=== PATIENT | male | born 1975 | race Caucasian/White ===

== ENCOUNTER 2020-03-01 12:58 | Outpatient (REF) | payer MEDICAID, SELFPAY | END 2020-03-01 12:59 | disposition home or self-care (01) | LOC: HO.LAB 12:58 | PROVIDERS: PCP Internal Medicine; Visit Provider Internal Medicine | DX: Z20.828 Contact with and (suspected) exposure to other viral communicable diseases (principal) | CPT/HCPCS: U0003 ==

== ENCOUNTER 2020-03-07 13:33 | Outpatient (REF) | payer MEDICAID, SELFPAY | END 2020-03-07 13:34 | disposition home or self-care (01) | LOC: HO.LAB 13:33 | PROVIDERS: PCP Internal Medicine; Visit Provider Internal Medicine | DX: Z20.828 Contact with and (suspected) exposure to other viral communicable diseases (principal) | CPT/HCPCS: C9803; U0003 ==

== ENCOUNTER 2020-03-14 11:55 | Outpatient (REF) | payer MEDICAID, SELFPAY | END 2020-03-14 11:56 | disposition home or self-care (01) | LOC: HO.LAB 11:55 | PROVIDERS: Visit Provider Internal Medicine | DX: Z20.828 Contact with and (suspected) exposure to other viral communicable diseases (principal) | CPT/HCPCS: C9803; U0003 ==

== ENCOUNTER 2020-03-20 14:44 | Outpatient (REF) | payer MEDICAID, SELFPAY | END 2020-03-20 14:45 | disposition home or self-care (01) | LOC: HO.LAB 14:44 | PROVIDERS: Visit Provider Internal Medicine | DX: Z20.828 Contact with and (suspected) exposure to other viral communicable diseases (principal) | CPT/HCPCS: C9803; U0003 ==

== ENCOUNTER 2020-04-09 12:36 | Outpatient (REF) | payer MEDICAID, SELFPAY | END 2020-04-09 12:37 | disposition home or self-care (01) | LOC: HO.LAB 12:36 | PROVIDERS: PCP Internal Medicine; Visit Provider Internal Medicine | DX: Z20.828 Contact with and (suspected) exposure to other viral communicable diseases (principal) | CPT/HCPCS: C9803; U0003 ==

== ENCOUNTER 2021-04-07 10:09 | Emergency (ER) | payer MEDICAID, SELFPAY ==
[2021-04-07 11:03] VITALS: BP 152/98; PULSE 77; RESP 18; TEMP 36.5; O2SAT 98; BMI 26.6
[2021-04-07 11:10] VITALS: BP 152/98; PULSE 77; RESP 18; TEMP 36.5; O2SAT 98
[2021-04-07] MEDS: hydrOXYzine HCL 25 MG TABLET PO (12:32)
--- NOTE | 2021-04-07 12:44 | ED_ITS ---
HPI - Anxiety General Chief Complaint: Anxiety Stated Complaint: Anxiety Time Seen by Provider: 04/07/21 12:03 Source: patient Mode of arrival: ambulatory History of Present Illness HPI narrative: 45-year-old male with past medical history of anxiety, depression, opiate abuse recently weaned off methadone 18 days ago presenting to the ED complaining of increased anxiety and insomnia since stopping methadone. Denies any drug use. Reports due to increased anxiety has been drinking EtOH. Admits to drinking almost daily until intoxicated. Last drink Wednesday. Denies history of withdrawal seizures. Denies SI/HI, CP/SOB, abdominal pain, nausea/vomiting MD complaint: anxiety Quality: constant Related Data Previous Rx's Medication Instructions Recorded hydroxyzine HCl 25 mg tablet 25 mg PO TID PRN #5 tab 04/07/21 Allergies Allergy/AdvReac Type Severity Reaction Status Date / Time No Known Allergies Allergy Verified 04/07/21 11:03 [No Known Allergies*] Review of Systems Review of Systems: Constitutional: No Fever, No Chills,No Fatigue, No Malaise ENT/Mouth: No Ear Pain, No Nasal Congestion, No sore throat, No Rhinorrhea Eyes: No Eye Pain, No Swelling, No Redness Cardiovascular: No Chest Pain, No SOB, No Palpitations Respiratory: No Cough, No Dyspnea Gastrointestinal: No Nausea, No Vomiting, No Diarrhea, No Constipation, No Abdominal pain Genitourinary: No Dysuria, No Flank Pain Musculoskeletal: No joint pain, No Myalgias Skin: No Skin Lesions, No rash Neuro: No Weakness, No Dizziness, No Headache Psych: + Anxiety/Panic, No Depression, No SI/HI/AH/VH, No Social Issues Yes all other systems are reviewed and are negative [facility] Past Medical History Attestation statement: The following information was validated with the patient. Medical History Anxiety Depression Opiate abuse, episodic Social History Social History Advance Directives: No Advance Directives Information Provided: No Physical Exam Vital Signs: Vital Signs: Last Vital Signs Temp 97.7 F 04/07/21 11:10 Pulse 77 04/07/21 11:10 Resp 18 04/07/21 11:10 BP 152/98 H 04/07/21 11:10 Pulse Ox 98 12/06/21 11:10 BMI result Body Mass Index 26.6 Const: General: cooperative, healthy appearing, no acute distress and anxious Orientation/consciousness: patient oriented x3 Limitations: no limitations HENMT: Head: Yes normal to inspection and Yes normocephalic Ears: hearing grossly normal bilaterally General nose exam: Normal external nose present Face and sinus: Yes normal facial exam Eyes: General: appearance normal, both eyes and all related structures EOM: EOMs intact bilaterally Neck: Neck: Yes normal visual inspection and Yes no meningeal signs Resp: Effort & Inspection: normal respiratory effort Auscultation: clear to auscultation bilaterally, no rales, no rhonchi and no wheezes Cardio: Rate: regular rate Heart sounds: S1 normal heart sound present and S2 normal heart sound present GI: Inspection: Yes normal to inspection Skin: Rashes: no rashes Wounds: no wounds Neuro: General: patient oriented x3 and no meningeal signs Gait exam (Neuro): Normal gait present Motor exam (neuro): no tremors and no fasciculations noted Extrem: General: Yes normal to inspection Psych: Appearance: grossly normal Thought process: Normal thought process present Thought content: suicidality and no homicidality Insight: Good insight present (Psych) MDM - Anxiety MDM Narrative Medical decision making narrative: 45-year-old male with past medical history of anxiety, depression, opiate abuse recently weaned off methadone 18 days ago presenting to the ED complaining of increased anxiety and insomnia since stopping methadone. On exam vital signs stable, NAD/nontoxic appearing, lungs CTA, appears anxious. Discussed with patient he needs to follow-up with his PCP for anxiolytic prescription however will give him Atarax in the ED and a couple days worth of medication until can see PCP Differential Diagnosis Differential diagnosis: Likely panic disorder and acute anxiety Medical Records Attestation: I reviewed the patient's medical records. Lab Data Attestation: I reviewed the patient's lab results. Discharge Plan Discharge Clinical Impression: Acute anxiety Patient Disposition: Home, Self-Care Instructions: Anxiety (ED) Additional Instructions: Hydroxyzine was sent to pharmacy for you for acute anxiety, take as needed You need to follow-up with her primary care doctor for further prescription Please do not drink alcohol or take drugs can kill you, if you have thoughts of hurting herself or hurting others please return to the emergency department Prescriptions: New hydroxyzine HCl 25 mg tablet 25 mg PO TID PRN (Reason: anxiety) Qty: 5 RF: 0 Referrals: Geoff Wilkins MD [Primary Care Provider] - 2 days Stand Alone Forms: Work/School Release
== END 2021-04-07 13:09 | disposition home or self-care (01) ==
PROVIDERS: Emergency Provider Emergency Medicine; PCP Internal Medicine
DX: F41.9 Anxiety disorder, unspecified (principal); F11.11 Opioid abuse, in remission
CPT/HCPCS: 99283

== ENCOUNTER 2021-10-31 23:03 | Emergency (ER) | payer MEDICAID, SELFPAY ==
--- NOTE | ~2021-10-31 | XR_ITS ---
EXAMINATION: XR FOOT, LEFT CLINICAL INFORMATION: Injury left foot. COMPARISON: None TECHNIQUE: AP, lateral, and oblique views of the left foot. 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 No acute abnormality of bone or joint. There is no fracture. No focal bone lesion or abnormal periosteal reaction. No soft tissue abnormality. XR/XR foot LT min 3V IMPRESSION: Normal left foot.
[2021-10-31 23:34] VITALS: BP 107/77; PULSE 104; RESP 16; TEMP 36.7; O2SAT 95; BMI 27.3
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
[2021-11-01] MEDS: Diphth,Pertus(ACell),Tet Adult 0.5 ML SYRINGE IM (00:42)
== END 2021-11-01 00:52 | disposition home or self-care (01) ==
PROVIDERS: Emergency Provider Internal Medicine; PCP Internal Medicine
DX: S91.332A Puncture wound without foreign body, left foot, initial encounter (principal); W22.8XXA Striking against or struck by other objects, initial encounter; Y93.89 Activity, other specified; Y92.012 Bathroom of single-family (private) house as the place of occurrence of the external cause; Y99.8 Other external cause status
CPT/HCPCS: 73630; 90471; 90715; 99282; 99284

== ENCOUNTER 2022-06-14 02:45 | Emergency (ER) | payer MEDICAID, SELFPAY ==
[2022-06-14 02:57] VITALS: BP 168/103; BP 190/117; PULSE 111; PULSE 115; RESP 18; TEMP 36.8; O2SAT 97; BMI 27.3
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
--- NOTE | 2022-06-14 03:17 | ECG_ITS ---
Test Reason : OVERDOSE Blood Pressure : / mmHG Vent. Rate : 100 BPM Atrial Rate : 100 BPM P-R Int : 136 ms QRS Dur : 080 ms QT Int : 336 ms P-R-T Axes : 066 034 025 degrees QTc Int : 433 ms Normal sinus rhythm Nonspecific T wave abnormality Abnormal ECG No previous ECGs available Referred By: Angelo Donovan Electronically Signed By:SHANTAL ADHIKARI MD
[2022-06-14 03:29] LABS: Basophils Absolute Auto 0.1 X10*3/uL (0.0-0.2); Basophils Percent Auto 0.5 % (0-2); Eosinophils Absolute Auto 0.2 X10*3/uL (0.0-0.4); Eosinophils Percent Auto 1.6 % (0-4); Hematocrit 44.2 % (42.0-52.0); Hemoglobin 15.5 g/dl (14.0-18.0); Imm Gran Abs Auto 0.04 X10*3/uL (0.00-0.03); Imm Gran Pct Auto 0.4 % (0.0-0.4); Lymphocytes Absolute Auto 1.9 X10*3/uL (1.2-4.9); Lymphocytes Percent Auto 20.2 % (20-40); MANUAL DIFF FLAG NO; Mean Corpuscular HGB Conc 35.1 g/dl (31.0-36.0); Mean Corpuscular Hemoglobin 30.3 pg (27.0-33.0); Mean Corpuscular Volume 86.5 fL (80.0-98.0); Mean Platelet Volume 8.2 fL (9.4-12.4); Monocytes Absolute Auto 0.8 X10*3/uL (0.1-1.2); Monocytes Percent Auto 8.7 % (2-11); Neutrophils Absolute Auto 6.3 x10*3/uL (2.0-8.3); Neutrophils Percent Auto 68.6 % (45-73); Platelet Count 311 X10*3/uL (160-400); Red Blood Count 5.11 X10*6/uL (4.60-5.80); Red Cell Distribution Width 15.4 % (11.0-16.0); White Blood Count 9.3 X10*3/uL (4.8-10.8)
--- OUTSIDE RECORDS SUMMARY | 2022-06-14 03:54 | XMS_ITS | Continuity of Care Document ---
:1975 Author Organization [facility] Address [address] [place] [address]- Care Team Providers Name Role Phone Geoff Wilkins MD [id number] Date[facility]s): 12/07/19 - 01/27/20 [facility] [address] [place] [address]- [facility] Attending Physician: Jennifer Adam MD Admitting Physician: Jennifer Adam MD Referring Physician: Geoff Wilkins MD Allergies, Adverse Reactions, Alerts Substance Reaction Severity Status NKA Active Immunizations Given and Recorded Vaccine Date Status Refusal Reason pneumococcal 23-valent vaccine 12/01/19 Given Medications CeleXA 40 mg oral tablet 40 mg, 1, tablet, By Mouth, Daily, # 30 tablet, Refills 0, Tot. Refills 0, Maintenance, 01/13/20 9:44:00 EDT, Route to Pharmacy Electronically, [facility]/pharmacy #[id number], 171.45, cm, 01/12/20 15:07:00 EDT, Height, 74.2, kg, 12/13/19 20:44:00 EDT, Dry Weight Start Date: 01/13/20 Status: Orderedgabapentin 800 mg oral tablet 1 tablet = 800 mg, By Mouth, 3 times a day, # 90 tablet, 0 Refills, Maintenance, 01/13/20 9:45:00 EDT, Tablet, [facility]/pharmacy #[id number], 171.45, cm, 01/12/20 15:07:00 EDT, Height, 74.2, kg, 12/13/19 20:44:00EDT, Dry Weight Start Date: 01/13/20 Status: Orderednicotine 14 mg/24 hr transdermal film, extended release 1 patch, Topically, Daily, # 30 patch, 0 Refills, Maintenance, 01/13/20 9:48:00 EDT, Patch, [facility]/pharmacy #[id number], 1 patch Topically Daily, 171.45, cm, 01/12/20 15:07:00 EDT, Height, 74.2, kg, 12/13/19 20:44:00 EDT, Dry Weight Start Date: 01/13/20 Status: OrderedTylenol 325 mg oral tablet 975 mg, 3, tablet, By Mouth, 2 times a day, Refills 0, Maintenance, 01/13/20 9:43:00 EDT Start Date: 01/13/20 Status: Ordered Problem List Condition Effective Dates Status Health Status Informant Back pain(Confirmed) Active Discitis of lumbar region(Confirmed) Active Opioid use disorder, severe, Active dependence(Confirmed) Social History Social History Type Response Smoking Status 10 or more cigarettes (1/2 p ack or more)/day in last 30 days entered on: 09/19/19 Sex
--- OUTSIDE RECORDS SUMMARY | 2022-06-14 03:54 | XMS_ITS | Continuity of Care Document ---
:1975 Author Organization [facility] Address [address] [place] [address]- Care Team Providers Name Role Phone Geoff Wilkins MD Primary Care Physician Encounter [facility] Date(s): 12/13/19 - 01/13/[address] [address] Discharge Disposition: A-D/C Home Attending Physician: Aria Arnold MD Admitting Physician: Dawood Grant MD Referring Physician: Dawood Grant MD Allergies, Adverse Reactions, Alerts Substance Reaction Severity Status NKA Active Immunizations Given and Recorded Vaccine Date Status Refusal Reason pneumococcal 23-valent vaccine 12/01/19 Given Medications CeleXA 40 mg oral tablet 40 mg, 1, tablet, By Mouth, Daily, # 30 tablet, Refills 0, Tot. Refills 0, Maintenance, 01/13/20 9:44:00 EDT, Route to Pharmacy Electronically, [facility]/pharmacy [facility][id number], 171.45, cm, 01/12/20 15:07:00 EDT, Height, 74.2, kg, 12/13/19 20:44:00 EDT, Dry Weight Start Date: 01/13/20 Status: Orderedgabapentin 800 mg oral tablet 1 tablet = 800 mg, By Mouth, 3 times a day, # 90 tablet, 0 Refills, Maintenance, 01/13/20 9:45:00 EDT, Tablet, [facility]/pharmacy #[id number], 171.45, cm, 01/12/20 15:07:00 EDT, Height, 74.2, kg, 12/13/19 20:44:00EDT, Dry Weight Start Date: 01/13/20 Status: Orderedmethadone 10 mg oral tablet 2 tablet = 20 mg, By Mouth, 4 times a day, Replaces previous Rx, # 16 tablet, 0 Refills, Acute 01/15/20 10:00:00 EDT, 01/13/20 10:48:00 EDT, Tablet, [facility]/pharmacy #[id number], For PAIN, 171.45, cm, 01/12/20 15:07:00 EDT, Height, 74.2, kg, 12/13/19 20:44:00 E... Start Date: 01/13/20 Stop Date: 01/15/20 Status: Orderednicotine 14 mg/24 hr transdermal film, extended release 1 patch, Topically, Daily, # 30 patch, 0 Refills, Maintenance, 01/13/20 9:48:00 EDT, Patch, [facility]/pharmacy #[id number], 1 patch Topically Daily, 171.45, cm, [...] Active Opioid use disorder, severe, Active dependence(Confirmed) Vital Signs Most recent to oldest 1 2 3 4 [Reference Range]: Height 171.45 cm 171.45 cm 171.45 cm (01/12/20 3:07 PM) (01/12/20 6:35 AM) (01/11/20 8:37 PM) Weight 76.7 kg 77.0 kg 77 kg (01/13/20 6:52 AM) (01/12/20 6:34 AM) (01/08/20 6:26 AM) Oxygen Saturation 97 % 100 % 95 % [94-100 %] (01/12/20 9:00 PM) (01/12/20 3:07 PM) (01/12/20 6:35 AM) Pulse Rate [55-90 84 bpm 65 bpm 65 bpm bpm] (01/12/20 9:00 PM) (01/12/20 3:07 PM) (01/12/20 6:35 AM) Body Mass Index 25.24 [18.5-24.99] *H* (12/13/19 8:44 PM) Blood Pressure 145/91 mm Hg 119/64 mm Hg 139/85 mm Hg [90-138/55-84 mm Hg] *H* (01/12/20 3:07 PM) *H* (01/12/20 9:00 PM) (01/12/20 6:35 AM) Respiratory Rate 17 br/min 17 br/min 17 br/min 17 br/min [16-30 br/min] (01/13/20 10:32 AM) (01/13/20 10:32 AM) (01/13/20 8:27 AM) (01/13/20 8:27 AM) Temperature 97.9 DegF 98.8 DegF 97.5 DegF [96.8-100.4 DegF] (01/12/20 9:00 PM) (01/12/20 3:07 PM) (01/12/20 6:35 AM) Liters per Minute 0 L/min 0 L/min 0 L/min (01/10/20 5:00 AM) (01/09/20 8:00 PM) (12/30/19 4:00 PM) Mode of Delivery Room air Room air Room air (Oxygen) (01/12/20 9:00 PM) (01/12/20 6:35 AM) (01/11/20 8:37 PM) Blood pressure sites Arm, left Arm, right Arm, left (01/12/20 9:00 PM) (01/12/20 3:07 PM) (01/12/20 6:35 AM) Temperature Route Temporal Temporal Temporal (01/12/20 9:00 PM) (01/12/20 3:07 PM) (01/12/20 6:35 AM) Dry Weight 74.2 kg (12/13/19 8:44 PM) Weight Obtained Via Standing scale Standing scale Standing scale (01/13/20 6:52 AM) (01/12/20 6:34 AM) (01/08/20 6:26 AM) Social History Social History Type Response Smoking Status 10 or more cigarettes (1/2 p ack or more)/day in last 30 days entered on: 09/19/19 Sex
--- OUTSIDE RECORDS SUMMARY | 2022-06-14 03:54 | XMS_ITS | Continuity of Care Document ---
:1975 Author Organization [facility] Address [address] [place] [address]- Care Team Providers Name Role Phone Geoff Wilkins MD Primary Care Physician Encounter [facility] Date(s): 12/28/19 - 01/27/20 [facility] [address] [place] [address] [facility] Attending Physician: Kelly Avitia Admitting Physician: Kelly Avitia Referring Physician: AdmtrKelly Allergies, Adverse Reactions, Alerts Substance Reaction Severity Status NKA Active Immunizations Given and Recorded Vaccine Date Status Refusal Reason pneumococcal 23-valent vaccine 12/01/19 Given Medications CeleXA 40 mg oral tablet 40 mg, 1, tablet, By Mouth, Daily, # 30 tablet, Refills 0, Tot. Refills 0, Maintenance, 01/13/20 9:44:00 EDT, Route to Pharmacy Electronically, [facility]/pharmacy #[id number], 171.45, cm, 01/12/20 15:07:00 EDT, Height, 74.2, kg, 12/13/19 20:44:00 EDT, Dry Weight Start Date: 01/13/20 Status: Orderedgabapentin 800 mg oral tablet 1 tablet = 800 mg, By Mouth, 3 times a day, # 90 tablet, 0 Refills, Maintenance, 01/13/20 9:45:00 EDT, Tablet, [facility]/pharmacy #[id number], 171.45, cm, 01/12/20 15:07:00 EDT, Height, [...]
--- OUTSIDE RECORDS SUMMARY | 2022-06-14 03:54 | XMS_ITS | Continuity of Care Document ---
:1975 Author Organization [facility] Address [address] [place] [address]- Care Team Providers Name Role Phone Geoff Wilkins MD Primary Care Physician Encounter [facility] Date(s): 11/28/19 - 12/13/[address] [address]- [facility] Encounter Diagnosis Intravenous drug user (Final) - 11/28/19 Discharge Disposition: Disch/Trans to a [facility] Attending Physician: Adrianna Eaton MD Admitting Physician: Lizeth Cueva MD Referring Physician: Not on Staff, Referring MD Allergies, Adverse Reactions, Alerts Substance Reaction Severity Status NKA Active Immunizations Given and Recorded Vaccine Date Status Refusal Reason pneumococcal 23-valent vaccine 12/01/19 Given Medications ceFAZolin IVPB 2 Gm, IVPB, Every 8 hours, Maintenance, 12/13/19 21:03:00 EDT Start Date: 12/13/19 Status: OrderedCeleXA 40 mg oral tablet 40 mg, 1, tablet, By Mouth, Daily, # 30 tablet, Refills 0, Maintenance, 11/30/19 4:40:00 EDT Start Date: 11/30/19 Status: Orderedenoxaparin 40 mg/0.4 mL injectable solution 0.4 mL = 40 mg, Subcutaneous Injection, Daily, for 30 days, # 12 mL, 0 Refills, Acute 01/12/20 15:06:00 EDT, 12/13/19 15:06:00 EDT, Injection Start Date: 12/13/19 Stop Date: 01/12/20 Status: Orderedgabapentin 300 mg oral capsule 300 mg, 1, capsule, By Mouth, 3 times a day, Refills 0, Maintenance, 12/13/19 15:06:00 EDT Start Date: 12/13/19 Status: OrderedhydrOXYzine pamoate 25 mg oral capsule 2 capsule = 50 mg, By Mouth, Daily at bedtime, PRN Other, Anxiety, 0 Refills, Maintenance, 12/13/19 15:06:00 EDT, Capsule Start Date: 12/13/19 Status: Orderedketorolac 30 mg/mL injectable solution 0.5 mL = 15 mg, IV Push Slowly, Every 6 hours, PRN Pain , Moderate, 0 Refills, Maintenance, 12/12/2014:07:00 EDT, Injection Start Date: 12/13/19 Stop Date: 12/18/19 Status: Orderedmethadone 10 mg oral tablet 4.5 tablet = 45 mg, By Mouth, Daily, 0 Refills, Maintenance, 12/13/19 15:07:00 EDT, Tablet, Partial fill upon patient request Start Date: 12/13/19 Status: Orderedmethadone 10 mg oral tablet 1 tablet = 10 mg, By Mouth, Daily at bedtime, 0 Refills, Maintenance, 12/13/19 15:07:00 EDT, Tablet,Partial fill upon patient request Start Date: 12/13/19 Status: OrderedTylenol 325 mg oral tablet 650 mg, 2, tablet, By Mouth, Every 8 hours, # 30 tablet, Refills 0, Tot. Refills 0, Acute 01/13/20 15:07:00 EDT, 12/13/19 15:04:00 EDT, Do Not Route Start Date: 12/13/19 Stop Date: 01/13/20 Status: Ordered Problem List Condition Effective Dates Status Health Status Informant Back pain(Confirmed) Active Discitis of lumbar region(Confirmed) Active Opioid use disorder, severe, Active dependence(Confirmed) Results Orders for Microbiology Reports Name Date Blood Culture 12/03/19 Blood Culture #2 12/03/19 Blood Culture 11/30/19 Blood Culture #2 11/30/19 Blood Culture 11/29/19 Blood Culture #2 11/29/19 Blood Culture 11/28/19 Blood Culture #2 11/28/19 Microbiology Reports TEST:Blood Culture, Second Order STATUS:Auth (Verified) BODY SITE: SOURCE:Blood COLLECTED DATE/TIME:12/03/19 11:37 AMBlood Culture, Second Order SPECIMEN DESCRIPTION : BLOOD R SPECIAL REQUESTS : NONE CULTURE : NO GROWTH 5 DAYS. REPORT STATUS : FINAL 12/08/2019TEST:Blood Culture STATUS:Auth (Verified) BODY SITE: SOURCE:Blood COLLECTED DATE/TIME:12/03/19 11:27 AMBlood Culture SPECIMEN DESCRIPTION : BLOOD L SPECIAL REQUESTS : NONE CULTURE : NO GROWTH 5 DAYS. REPORT STATUS : FINAL 12/08/2019TEST:Blood Culture STATUS:Auth (Verified) BODY SITE: SOURCE:Blood COLLECTED DATE/TIME:11/30/19 6:47 PMBlood Culture SPECIMEN DESCRIPTION : BLOOD NO SITE SPECIAL REQUESTS : CRITICAL VALUE CALLED AND VERIFIED BY READBACK FOR: [place] [id number], D6 ON 12/01/19 AT 11:55 BY TECH [id number] CULTURE : STAPHYLOCOCCUS AUREUS. REPORT STATUS : FINAL 12/03/2019 ORGANISM STAPHYLOCOCCUS AUREUS. METHOD MIN. INHIB. CONC. (MCG/ML) CIPROFLOXACIN SUSCEPTIBLE CLINDAMYCIN SUSCEPTIBLE ERYTHROMYCIN SUSCEPTIBLE LEVOFLOXACIN SUSCEPTIBLE OXACILLIN SUSCEPTIBLE PENICILLIN SUSCEPTIBLE RIFAMPIN SUSCEPTIBLE RIFAMPIN RIFAMPIN SHOULD NOT BE USED ALONE FOR ANTIMICROBIAL RIFAMPIN THERAPY. TETRACYCLINE SUSCEPTIBLE TRIMETH/SULFAMETHOX SUSCEPTIBLE VANCOMYCIN SUSCEPTIBLETEST:Blood Culture, Second Order STATUS:Auth (Verified) BODY SITE: SOURCE:Blood COLLECTED DATE/TIME:11/30/19 6:47 PMBlood Culture, Second Order SPECIMEN DESCRIPTION : BLOOD NO SITE SPECIAL REQUESTS : CRITICAL VALUE CALLED AND VERIFIED BY READBACK FOR: [place] [id number], D6 ON 12/01/19 AT 11:55 BY TECH [id number] CULTURE : STAPHYLOCOCCUS AUREUS. FOR SUSCEPTIBILITY RESULT REFER TO BLOOD CULTURE REPORT STATUS : FINAL 12/03/2019TEST:Blood Culture, Second Order STATUS:Auth (Verified) BODY SITE: SOURCE:Blood COLLECTED DATE/TIME:11/29/19 4:11 PMBlood Culture, Second Order SPECIMEN DESCRIPTION : BLOOD L AC SPECIAL REQUESTS : CRITICAL VALUE CALLED AND VERIFIED BY READBACK FOR: GRAM POSITIVE COCCI CALLED TO [id number] [facility] [id number] BY TECH [id number] CULTURE : STAPHYLOCOCCUS AUREUS. FOR SUSCEPTIBILITY RESULT REFER TO BLOOD CULTURE REPORT STATUS : FINAL 12/02/2019TEST:Blood Culture STATUS:Auth (Verified) BODY SITE: SOURCE:Blood COLLECTED DATE/TIME:11/29/19 2:52 PMBlood Culture SPECIMEN DESCRIPTION : BLOOD L ARM SPECIAL REQUESTS : CRITICAL VALUE CALLED AND VERIFIED BY READBACK FOR: GRAM POSITIVE COCCI TO [id number], ER ON 11/30/19 AT 11:26 BY TECH [id number] CULTURE : STAPHYLOCOCCUS AUREUS. REPORT STATUS : FINAL 12/02/2019 ORGANISM STAPHYLOCOCCUS AUREUS. METHOD MIN. INHIB. CONC. (MCG/ML) CIPROFLOXACIN SUSCEPTIBLE CLINDAMYCIN SUSCEPTIBLE ERYTHROMYCIN SUSCEPTIBLE LEVOFLOXACIN SUSCEPTIBLE OXACILLIN SUSCEPTIBLE PENICILLIN SUSCEPTIBLE RIFAMPIN SUSCEPTIBLE RIFAMPIN RIFAMPIN SHOULD NOT BE USED ALONE FOR ANTIMICROBIAL RIFAMPIN THERAPY. TETRACYCLINE SUSCEPTIBLE TRIMETH/SULFAMETHOX SUSCEPTIBLE VANCOMYCIN SUSCEPTIBLETEST:Blood Culture STATUS:Auth (Verified) BODY SITE: SOURCE:Blood COLLECTED DATE/TIME:11/28/19 2:59 AMBlood Culture SPECIMEN DESCRIPTION : BLOOD RIGHT ARM SPECIAL REQUESTS : CRITICAL VALUE CALLED AND VERIFIED BY READBACK FOR: GRAM POSITIVE COCCI CALLED TO [id number], HANANE, ON 11/29/2019 AT 00:25 BY TECH [id number] CULTURE : STAPHYLOCOCCUS AUREUS. REPORT STATUS : FINAL 12/01/2019 ORGANISM STAPHYLOCOCCUS AUREUS. METHOD MIN. INHIB. CONC. (MCG/ML) CIPROFLOXACIN SUSCEPTIBLE CLINDAMYCIN SUSCEPTIBLE ERYTHROMYCIN SUSCEPTIBLE LEVOFLOXACIN SUSCEPTIBLE OXACILLIN SUSCEPTIBLE PENICILLIN SUSCEPTIBLE RIFAMPIN SUSCEPTIBLE RIFAMPIN RIFAMPIN SHOULD NOT BE USED ALONE FOR ANTIMICROBIAL RIFAMPIN THERAPY. TETRACYCLINE SUSCEPTIBLE TRIMETH/SULFAMETHOX SUSCEPTIBLE VANCOMYCIN SUSCEPTIBLETEST:Blood Culture, Second Order STATUS:Auth (Verified) BODY SITE: SOURCE:Blood COLLECTED DATE/TIME:11/28/19 2:59 AMBlood Culture, Second Order SPECIMEN DESCRIPTION : BLOOD L ARM SPECIAL REQUESTS : CRITICAL VALUE CALLED AND VERIFIED BY READBACK FOR: GRAM POSITIVE COCCI CALLED TO [id number], ON 11/29/2019 AT 00:25 BY TECH [id number] CULTURE : STAPHYLOCOCCUS AUREUS. S. aureus was identified by multi-plex PCR. MecA NOT detected. The absence of the mecA gene is associated with susceptibility to methicillin (MSSA). FOR SUSCEPTIBILITY RESULT REFER TO BLOOD CULTURE REPORT STATUS : FINAL 12/01/2019Radiology Reports Exam Date Time Procedure Performing Provider Status 11/28/19 3:54 AM Orbit Min 4 Views Asim Byers; Kezia (Verif ied) Notes:(Orbit Min 4 Views) Reason For Exam: Foreign BodyRESULT: Orbit Min 4 Views Orbit 4 Views INDICATION: MRI screening. Orbital metallic foreign body exposure. Patient reports removal of the foreign body himself a few years ago. COMPARISON: None FINDINGS: No evidence of acute fracture. Sinuses are clear. No radiopaque foreign body in the orbits. Dental amalgam is noted. IMPRESSION: No radiopaque foreign body in the orbits. I have personally reviewed the images and I agree with this report. WSN: [id number] Ordering Physician: Santana Esquivel Dictated By: Emilia Strong MD Dictated Date/Time: 11/28/19 8:14 am Reviewed By: Nas Anand MD Signed By: Nas Anand MD Signed Date/Time: 11/28/19 8:19 am Transcribed By: MISBAH Transcribed Date/Time: 11/28/19 4:06 am Vital Signs Most recent to oldest 1 2 3 [Reference Range]: Oxygen Saturation [94-100 %] 98 % 96 % 97 % (12/13/19 1:13 PM) (12/13/19 4:42 AM) (12/12/19 10: 32 PM) Pulse Rate [55-90 bpm] 68 bpm 74 bpm 70 bpm (12/13/19 1:13 PM) (12/13/19 4:42 AM) (12/12/19 10: 32 PM) Blood Pressure [90-138/55-84 115/57 mm Hg 120/58 mm Hg 125 /68 mm Hg mm Hg] (12/13/19 1:13 PM) (12/13/19 4:42 AM) (12/12/19 10: 32 PM) Respiratory Rate [16-30 18 br/min 20 br/min 18 br/mi n br/min] (12/13/19 4:08 PM) (12/13/19 2:30 PM) (12/13/19 7:5 0 AM) Temperature [96.8-100.4 DegF] 98.1 DegF 97.6 DegF 98 .3 DegF (12/13/19 1:13 PM) (12/13/19 4:42 AM) (12/12/19 10: 32 PM) Liters per Minute 0 L/min 0 L/min 0 L/min (12/08/19 12:38 AM) (12/06/19 3:30 PM) (12/06/19 11:20 AM) Mode of Delivery (Oxygen) Room air Room air Room a ir (12/13/19 1:13 PM) (12/13/19 4:42 AM) (12/12/19 10: 32 PM) Blood pressure sites Arm, left Arm, right Arm, right (12/13/19 4:42 AM) (12/12/19 10:32 PM) (12/12/19 4: 56 AM) Temperature Route Oral Oral Oral (12/13/19 1:13 PM) (12/13/19 4:42 AM) (12/12/19 10: 32 PM) Social History Social History Type Response Smoking Status 10 or more cigarettes (1/2 p ack or more)/day in last 30 days entered on: 09/19/19 Sex
[2022-06-14 03:57] LABS: Alanine Aminotransferase 35 U/L (0-40); Albumin Level 4.5 g/dL (3.5-5.0); Alkaline Phosphatase 51 U/L (39-117); Anion Gap 19 (12-20); Aspartate Amino Transferase 43 U/L (5-37); Bilirubin Total 0.5 mg/dL (0.0-1.0); Blood Urea Nitrogen 11 mg/dL (9-16); Calcium 8.7 mg/dL (8.4-10.2); Carbon Dioxide 23 mmol/L (22-29); Chloride 100 mmol/L (96-108); Creatinine Clr Calc Pharmacy 83.2; Estimated Glomerular Filt Rate > 60; Ethanol 130 mg/dL; Glucose Random 77 mg/dL (60-115); Potassium 3.5 mmol/L (3.3-5.1); Sodium 138 mmol/L (135-145); Total Protein 7.2 g/dL (6.5-8.0)
[2022-06-14 04:23] LABS: Appearance Urine Clear; Color Urine Yellow; Glucose Urine UA Negative (Negative); Leukocyte Esterase Urine Negative (Negative); Nitrite Urine Negative (Negative); Specific Gravity - Urine 1.015 (1.005-1.025); UMIC TRIGGER UA YES; Urine Blood Small (1+) (Negative); Urine Ketones Negative (Negative); Urine Protein Trace mg/dL (Neg-Trace)
[2022-06-14 04:24] VITALS: BP 161/94; PULSE 94; RESP 16
--- NOTE | 2022-06-14 04:29 | PC.NURSE ---
Pt. resting in bed in room. Pt. reports some anxiety over the events of the evening. Pt. provided urine sample, which was sent down to the lab. Pt. denies SI/HI/AH/VH at this time. Will continue to monitor.
[2022-06-14 04:33] LABS: Bacteria Urine None Seen (None Seen); Hyaline Casts Urine 0-2 /LPF (0-2); RBC Urine 0-2 /HPF (0-2); WBC Urine 0-5 /HPF (0-5)
[2022-06-14 04:39] LABS: Amphetamine Screen Urine Not Detected (Not Detect); Barbiturates, Urine Not Detected (Not Detect); Benzodiazepines Screen Urine Not Detected (Not Detect); Cannabinoid Screen Urine Not Detected (Not Detect); Cocaine Screen Urine Not Detected (Not Detect); Fentanyl, urine POSITIVE (Not Detect); Opiate Screen Urine Not Detected (Not Detect); Phencyclidine Screen Urine Not Detected (Not Detect)
[2022-06-14] MEDS: Ondansetron ODT 4 MG TAB.RAPDIS TRANSLINGU (05:03)
--- NOTE | 2022-06-14 05:21 | PC.NURSE ---
Pt. in room, talking on phone. Pt. has been restless, stating he likes to keep moving. Pt. continues to deny SI, but reports high anxiety. Pt. encouraged to f/u with PCP for medication issues related to anxiety.
== END 2022-06-14 06:33 | disposition home or self-care (01) ==
PROVIDERS: Emergency Provider Emergency Medicine; PCP Internal Medicine
DX: T40.1X1A Poisoning by heroin, accidental (unintentional), initial encounter (principal); Y92.9 Unspecified place or not applicable; Z79.899 Other long term (current) drug therapy
CPT/HCPCS: 36415; 80053; 80307; 81001; 82077; 85025; 93005; 99285

== ENCOUNTER 2022-07-23 09:54 | Emergency (ER) | payer MEDICAID, SELFPAY ==
[2022-07-23 10:06] VITALS: BP 133/84; PULSE 60; RESP 18; TEMP 36.3; O2SAT 99; BMI 28.1
--- NOTE | 2022-07-23 10:36 | ED.GENADULT ---
HPI - General Adult General Chief complaint: Ear Problems Stated complaint: Ear infection/Sinus infection Time Seen by Provider: 07/23/22 10:21 Source: patient Mode of arrival: ambulatory Limitations: no limitations History of Present Illness HPI narrative: 47 y.o male w/ PMHx of recurrent ear infections who presents to the ED c/o acute on chronic L-sided ear pain and sinus congestion worsening x4 days. Pt states ear feels sore and blocked with intermittent foul-smelling dark-colored drainage. Also reports sinus congestion/pressure with dark-green/yellow rhinorrhea. Denies fevers, chills, headache, cough, sore throat, chest pain, SOB, recent swimming, hearing loss or trauma to the area. Was recently treated with Augmentin and Cipro drops 1 month ago with relief however symptoms recurred. Does endorse daily q-tip use. Onset (ago): day(s) Related Data Previous Rx's Medication Instructions Recorded hydroxyzine HCl 25 mg tablet 25 mg PO TID PRN anxiety #5 tabs 04/07/21 cephalexin 500 mg tablet 500 mg PO Q6H 7 days #28 tabs 11/01/21 doxycycline hyclate 100 mg capsule 100 mg PO BID 7 days #14 caps 11/01/21 cefdinir 300 mg capsule 300 mg PO BID 7 days #14 caps 07/23/22 Allergies Allergy/AdvReac Type Severity Reaction Status Date / Time No Known Allergies Allergy Verified 07/23/22 10:09 [No Known Allergies*] Review of Systems Review of Systems: Constitutional: No Fever, No Chills, No Malaise ENT/Mouth: + L Ear Pain, +Nasal Congestion, +Sinus Pain, No sore throat, +Rhinorrhea, No Swallowing Difficulty Eyes: No Eye Pain, No Swelling, No Redness, No Vision Changes Cardiovascular: No Chest Pain, No SOB Respiratory: No Cough, No Sputum, No Dyspnea Gastrointestinal: No Nausea, No Vomiting, No Diarrhea, No Abdominal pain Musculoskeletal: No joint pain, No Myalgias Skin: No Skin Lesions, No rash Neuro: No Weakness, No Loss of Consciousness, No Dizziness, No Headache Yes all other systems are reviewed and are negative Constitutional: Constitutional: Reports as per [facility] Past Medical History Attestation statement: The following information was validated with the patient. Medical History Anxiety Depression Opiate abuse, episodic Social History Social History Advance Directives: No Advance Directives Information Provided: Yes Physical Exam ED Vital Signs: Vital Signs - 24 hr 07/23/22 10:06 Temperature 97.4 F Pulse Rate 60 Respiratory Rate 18 Blood Pressure 133/84 Pulse Oximetry 99 Oxygen Delivery Method Room Air BMI result Body Mass Index 28.1 Const General: cooperative, healthy appearing, no acute distress, alert and awake Orientation/consciousness: patient oriented x3 Limitations: no limitations HENMT Other: Right TM partially obstructed by cerumen but otherwise unremarkable. Left TM visualized after cerumen removal - appears dull and with loss of landmarks. No tragal, preauricular, mastoid, or occipital TTP. No obvious trauma, or lesions in the canal. No ear drainage Head: Yes normal to inspection and Yes atraumatic Ears: hearing grossly normal bilaterally and external ears normal General nose exam: Normal external nose present Face and sinus: Yes normal facial exam and Yes sinuses nontender Throat: Yes posterior oropharynx normal, Yes tonsils normal, Yes uvula midline, No uvula laterally displaced and No uvular edema Eyes General: appearance normal, both eyes and all related structures EOM: EOMs intact bilaterally Neck Neck: Yes normal visual inspection, Yes no meningeal signs and No anterior neck swelling Resp Effort & Inspection: normal respiratory effort and no respiratory distress Auscultation: clear to auscultation bilaterally Cardio Rate: regular rate Heart sounds: S1 normal heart sound present and S2 normal heart sound present GI Inspection: Yes normal to inspection Skin Rashes: no rashes Wounds: no wounds Neuro General: patient oriented x3, tone normal and no meningeal signs Gait exam (Neuro): Normal gait present Extrem General: Yes normal to inspection Course Course Course Narrative: Results discussed with patient including worrisome signs and symptoms and strict return precautions, and when to return to the emergency department. They verbalized understanding and feel safe for discharge at this time. Medical Decision Making Medical Decision Making [facility] Narrative: 47 y.o male w/ PMHx of recurrent ear infections who presents to the ED c/o acute on chronic L-sided ear pain and sinus congestion worsening x4 days. On exam pt is well-appearing, NAD, VSS, +nasal congestion while, Left TM dull with loss of landmarks. No mastoid or external ear TTP, no otorrhea, oropharynx WNL. Concern for otitis media. Exam not c/w otitis externa or otomycosis. Lower suspision for malignant otitis externa or mastoiditis. No evidence of TM perforation at this time. Plan: Cefdinir, discharge, refer to ENT. Please refer to course for remaining clinical decision making, interpretation of labs/imaging results, and discussions with consultants and/or family members. Differential Diagnosis Differential Diagnoses: The differential diagnosis associated with the presentation includes As above Admission/Observation Consideration of admission/observation: Escalation of care including admission/observation considered Lab Data MDM Lab Attestation statement: I reviewed the patient's lab results. Radiology Impression Discussion of test interpretation with radiology: I have reviewed the radiologist's reading. External Record Review External record reviewed: Inpatient record, Office record, Outpatient record, Prior outpatient labs, Prior outpatient radiology, Primary care record and Outside ED record Discharge Plan Discharge Clinical Impression: Otitis media Patient Disposition: Home, Self-Care Instructions: Ear Infection (ED) Additional Instructions: You have an internal ear infection. Cefdinir is an antibiotic please take as prescribed you need to follow up with and ENT specialist if symptoms persist or worsen return to the ED Prescriptions: New cefdinir 300 mg capsule 300 mg PO BID 7 Days Qty: 14 0RF No Action hydroxyzine HCl 25 mg tablet 25 mg PO TID PRN (Reason: anxiety) Qty: 5 0RF doxycycline hyclate 100 mg capsule 100 mg PO BID 7 Days Qty: 14 0RF cephalexin 500 mg tablet 500 mg PO Q6H 7 Days Qty: 28 0RF Referrals: Guillermo Spear [Physician] - Interventions: ED Discharge Assessment Last Done: 07/23/22 11:18 Discharge Date/Time: 07/23/22 11:19
== END 2022-07-23 11:19 | disposition home or self-care (01) ==
PROVIDERS: Emergency Provider Student in an Organized Health Care Education/Training Program; PCP Internal Medicine
DX: H66.92 Otitis media, unspecified, left ear (principal)
CPT/HCPCS: 99282; 99283

== ENCOUNTER 2023-02-07 09:11 | Emergency (ER) | payer MEDICAID, SELFPAY ==
[2023-02-07 09:14] VITALS: BP 145/74; PULSE 108; RESP 18; TEMP 36.6; O2SAT 96; BMI 27.6
--- NOTE | 2023-02-07 09:45 | ED.LOWEXIN ---
HPI - Extremity Injury (Lower) General Chief Complaint: Extremity Injury, Lower Stated Complaint: Bilateral knee pain Time Seen by Provider: 02/07/23 09:29 Source: patient Mode of arrival: ambulatory Limitations: no limitations History of Present Illness HPI Narrative: 47yo male previously healthy here with complaints of bilateral knee pain after a fall last evening. Patient reports he was sitting outside of the [employer] restaurant on a bench smoking a cigarette. He saw two elderly people walking who appeared to need help and he jumped up to help them slipping on the wet ground (it was raining). Both of his knees hit each other on the inner aspects and he then fell on them. No head strike or LOC. Since then he he has had pain with walking on his knees. Unable to sleep last night d/t to the pain. Took several alcoholic shots this morning and then called an uber to come here. No associated weakness, numbness, tingling of the extremities. Patient arrives ambulatory. Related Data Previous Rx's Medication Instructions Recorded hydroxyzine HCl 25 mg tablet 25 mg PO TID PRN anxiety #5 tabs 04/07/21 cephalexin 500 mg tablet 500 mg PO Q6H 7 days #28 tabs 11/01/21 doxycycline hyclate 100 mg capsule 100 mg PO BID 7 days #14 caps 11/01/21 cefdinir 300 mg capsule 300 mg PO BID 7 days #14 caps 07/23/22 naproxen 500 mg tablet 500 mg PO BID PRN pain #30 tabs 02/07/23 Allergies Allergy/AdvReac Type Severity Reaction Status Date / Time No Known Allergies Allergy Verified 07/23/22 10:09 [No Known Allergies*] Review of Systems Neurologic: Denies Abnormal speech present [facility] Past Medical History Medical History Anxiety Depression Opiate abuse, episodic Social History Social History Advance Directives: No Advance Directives Information Provided: No Physical Exam Vital Signs: Vital Signs: Last Vital Signs Temp 97.8 F 02/07/23 09:14 Pulse 108 H 02/07/23 09:14 Resp 18 02/07/23 09:14 BP 145/74 H 02/07/23 09:14 Pulse Ox 96 02/07/23 09:14 O2 Del Method Room Air 02/07/23 09:14 BMI result Body Mass Index 27.6 Const: General: cooperative, healthy appearing, comfortable and no acute distress Orientation/consciousness: patient oriented x3 Limitations: no limitations HEENT: Head: Yes normal to inspection Ears: hearing grossly normal bilaterally General nose exam: Normal external nose present Face and sinus: Yes normal facial exam Mouth: Normal oral and palatal mucosa present Throat: Yes posterior oropharynx normal Eyes: General: appearance normal, both eyes and all related structures Pupils: Equal, round and reactive pupils present Neck: Neck: Yes normal visual inspection Chest: Chest palpation & inspection: normal inspection of the chest Resp: Effort & Inspection: normal respiratory effort Auscultation: clear to auscultation bilaterally Cardio: Rate: regular rate Rhythm: regular rhythm Peripheral pulses: Peripheral pulses 2+ throughout GI: Inspection: Yes normal to inspection Palpation (GI): Soft to palpation and nontender Auscultation: normal bowel sounds Back/Spine/Pelvis: Thoracic/Lumbar Spine: thoracic and lumbar spine normal to inspection Skin: General skin exam: no rashes or lesions noted Neuro: General: patient oriented x3, no focal motor deficits and normal sensation to monofilament Cranial nerves: Yes Equal, round and reactive pupils present Cognition (Neuro): normal cognition Speech: No Abnormal speech present Gait exam (Neuro): Normal gait present Motor exam (neuro): 5/5 motor strength present throughout Extrem: Other: Pain on palpation to the bilateral medial joint lines. I do not appreciate any swelling or ecchymosis. There is full active and passive range of motion of the knees. There is full active and passive range of motion of the bilateral ankles. There are normal DP and PT pulses distally. Normal distal sensation. No ligamental laxity on exam. General: Yes normal to inspection Course Course Course Narrative: X-ray show no bony abnormality. Likely contusion. Patient will be given True wrap for comfort and discharged with NSAIDs. Reviewed worrisome signs and symptoms of when to return to the emergency room. Comfortable plan for discharge home. Medications Administered Discontinued Medications Generic Name Dose Route Start Last Admin Trade Name Freq PRN Reason Stop Dose Admin Ketorolac Tromethamine 60 mg 02/07/23 09:50 02/07/23 10:00 Ketorolac Tromethamine 60 Mg/2 Ml Vial IM 02/07/23 09:51 60 mg ONCE ONE Administration Medical Decision Making Medical Decision Making MDM Narrative: 47yo male previously healthy here with complaints of bilateral knee pain after a fall last evening. Patient reports he was sitting outside of the [employer] restaurant on a bench smoking a cigarette. He saw two elderly people walking who appeared to need help and he jumped up to help them slipping on the wet ground (it was raining). Both of his knees hit each other on the inner aspects and he then fell on them. No head strike or LOC. Since then he he has had pain with walking on his knees. Unable to sleep last night d/t to the pain. Took several alcoholic shots this morning and then called an uber to come here. No associated weakness, numbness, tingling of the extremities. Patient arrives ambulatory. Pain on palpation to the bilateral medial joint lines. I do not appreciate any swelling or ecchymosis. There is full active and passive range of motion of the knees. There is full active and passive range of motion of the bilateral ankles. There are normal DP and PT pulses distally. Normal distal sensation. No ligamental laxity on exam. Plan is to obtain x-rays, provide analgesia Differential Diagnosis Differential Diagnoses: The differential diagnosis associated with the presentation includes contusion, sprain, strain low concern for fracture, dislocation, vascular injury Admission/Observation Consideration of admission/observation: Escalation of care including admission/observation considered no evidence of complex fracture, dislocation or vascular injury requiring advanced imaging or emergent orthopedic consultation. Independent Interpretation I performed an independent interpretation of an: Plain X-Ray Interpretation: I independently reviewed the x-ray and agree with rad report Radiology Impression Discussion of test interpretation with radiology: I have reviewed the radiologist's reading. Radiologist Impression: [address] [address] XRay Report Signed Patient: Dieudonne Danielson MR#: [id number] : 1975 Acct:[id number] Age/Sex: 47 / M ADM Date: 02/07/23 Loc: HO.ED Attending Dr: Ordering Physician: Tiffany Martinez NP Date of Service: 02/07/23 Procedure(s): XR knee LT 2V Accession Number(s): [id number] cc: Geoff Wilkins MD; Juan,Tiffany TRAFFIC CLERK~ EXAMINATION: Bilateral knee. CLINICAL INDICATION: Fall and pain. COMPARISON: None. TECHNIQUE: 2 views of each knee. FINDINGS: RIGHT KNEE: The tricompartment joint space is maintained normal. No visible loose bodies, joint effusion or bony erosive changes. No acute fracture or dislocation seen. LEFT KNEE: The tricompartment joint space is maintained normal. No visible acute fracture, dislocation or loose bodies. No joint effusion or bony erosive changes. The soft tissues are normal. XR/XR knee LT 2V IMPRESSION: Unremarkable bilateral knee exam. Tests considered The following testing was considered but not selected: no evidence of complex fracture, dislocation or vascular injury requiring advanced imaging Prescription Management I considered prescription management with: Pain Medication Procedures Orthopedic Splinting/Casting Injury #1: Side: right Lower Extremity Injury Location: knee Lower Extremity Immobilizer: True wrap Injury #2: Side: left Lower Extremity Injury Location: knee Lower Extremity Immobilizer: True wrap Discharge Plan Discharge Clinical Impression: Contusion of knee, left, Contusion of knee, right Patient Disposition: Home, Self-Care Instructions: Contusion in Adults (ED) Additional Instructions: ice to the areas Rest Elevation Use True wrap for comfort as needed Take the medications as prescribed Follow-up with your doctor for any continued symptoms. Prescriptions: New naproxen 500 mg tablet 500 mg PO BID PRN (Reason: pain) Qty: 30 0RF No Action hydroxyzine HCl 25 mg tablet 25 mg PO TID PRN (Reason: anxiety) Qty: 5 0RF doxycycline hyclate 100 mg capsule 100 mg PO BID 7 Days Qty: 14 0RF cephalexin 500 mg tablet 500 mg PO Q6H 7 Days Qty: 28 0RF cefdinir 300 mg capsule 300 mg PO BID 7 Days Qty: 14 0RF Referrals: Geoff Wilkins MD [Primary Care Provider] - 1 week Stand Alone Forms: Work/School Release Interventions: ED Discharge Assessment Last Done: 02/07/23 10:46 Discharge Date/Time: 02/07/23 10:47
== END 2023-02-07 10:47 | disposition home or self-care (01) ==
PROVIDERS: Emergency Provider Emergency Medicine; PCP Internal Medicine
DX: S80.01XA Contusion of right knee, initial encounter (principal); S80.02XA Contusion of left knee, initial encounter; W01.0XXA Fall on same level from slipping, tripping and stumbling without subsequent striking against object, initial encounter; Y93.9 Activity, unspecified; Y92.9 Unspecified place or not applicable; Y99.9 Unspecified external cause status; Z79.899 Other long term (current) drug therapy; F17.210 Nicotine dependence, cigarettes, uncomplicated; Z71.6 Tobacco abuse counseling
CPT/HCPCS: 29505; 73560; 96372; 99283; 99284; J1885

== ENCOUNTER 2023-05-27 20:49 | Emergency (ER) | payer MEDICAID, SELFPAY ==
[2023-05-27 20:53] VITALS: BP 142/75; PULSE 74; RESP 18; TEMP 36.8; O2SAT 98; BMI 27.4
--- NOTE | 2023-05-27 20:53 | ED_ITS ---
HPI - General Adult General Chief complaint: Skin/Abscess/Foreign Body Stated complaint: skin irritation hands Time Seen by Provider: 05/27/23 21:07 Source: patient and RN notes reviewed Mode of arrival: ambulatory Limitations: no limitations History of Present Illness HPI narrative: This is a 47-year-old male presenting to the emergency department complaints psoriasis flare up to bilateral hands, forearms, worsening over the last few months. 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 Denies any fevers or chills. Denies any increased pain. He has not currently on prednisone or any other medications to manage his eczema. No other complaints or concerns at this time. MD complaint: Rash Onset (ago): month(s) Related Data Previous Rx's Medication Instructions Recorded hydroxyzine HCl 25 mg tablet 25 mg PO TID PRN anxiety #5 tabs 04/07/21 cephalexin 500 mg tablet 500 mg PO Q6H 7 days #28 tabs 11/01/21 doxycycline hyclate 100 mg capsule 100 mg PO BID 7 days #14 caps 11/01/21 cefdinir 300 mg capsule 300 mg PO BID 7 days #14 caps 07/23/22 naproxen 500 mg tablet 500 mg PO BID PRN pain #30 tabs 02/07/23 hydrocortisone 2.5 % topical cream 1 appl topical BID 3 weeks #28 05/27/23 grams prednisone 20 mg tablet 40 mg (2 x 20 mg) PO DAILY 5 days 05/27/23 #10 tabs Allergies Allergy/AdvReac Type Severity Reaction Status Date / Time No Known Allergies Allergy Verified 07/23/22 10:09 [No Known Allergies*] Review of Systems Review of Systems: Yes all other systems are reviewed and are negative [facility] Past Medical History Attestation statement: The following information was validated with the patient. Medical History Opiate abuse, episodic Depression Anxiety Social History Social History Advance Directives: No Advance Directives Information Provided: No Physical Exam ED Vital Signs: Vital Signs - 24 hr 05/27/23 20:53 Temperature 98.3 F Pulse Rate 74 Respiratory Rate 18 Blood Pressure 142/75 H Pulse Oximetry 98 Oxygen Delivery Method Room Air BMI result Body Mass Index 27.4 Const Other: General: Awake, alert, and oriented X3. No acute distress. HEENT: Normal inspection CVS: Normal heart rate and rhythm. Pulses normal. Respiratory: No respiratory distress Skin: Circular dry plaques noted to bilateral forearms and flexor surfaces. Bilateral hands, with crusting, cracking plaques noted to fingers, no surrounding erythema, warmth, or drainage. Full range of motion of the fingers without difficulty. Neuro: Oriented X 3. No motor deficit. No sensory deficit. Medical Decision Making Medical Decision Making MDM Narrative: 47-year-old male presenting to the emergency department for evaluation of eczema flare up. On arrival, vital signs within normal limits. Patient has findings concerning for atopic dermatitis. He has a known history of atopic dermatitis, current flare-up feel similar. No fevers or chills. No evidence infection on physical exam. Will treat with prednisone as well as topical hydrocortisone. Given dermatology follow-up. Also given return precautions. Patient understands agrees with plan. Patient stable for discharge Differential Diagnosis Differential Diagnoses: The differential diagnosis associated with the presentation includes Cellulitis, psoriasis, atopic dermatitis. Discharge Plan Discharge Clinical Impression: Plaque psoriasis Patient Disposition: Home, Self-Care Instructions: Psoriasis (ED) Additional Instructions: You were seen in the ER due to psoriasis flare up. I am prescribing you oral prednisone and hydrocortisone cream. Please take as prescribed. Finish the entire course even if you are feeling better. Watch areas of rashes, please return any new or worsening symptoms occur, i ncreased redness, swelling, drainage to the area. Please follow up with dermatology. Call tomorrow to make an appointment. [facility] [address] [place] [address] [address], [place] [address] Prescriptions: New prednisone 20 mg tablet 40 mg PO DAILY 5 Days Qty: 10 0RF hydrocortisone 2.5 % cream 1 appl topical BID 21 Days Qty: 28 0RF No Action hydroxyzine HCl 25 mg tablet 25 mg PO TID PRN (Reason: anxiety) Qty: 5 0RF doxycycline hyclate 100 mg capsule 100 mg PO BID 7 Days Qty: 14 0RF cephalexin 500 mg tablet 500 mg PO Q6H 7 Days Qty: 28 0RF cefdinir 300 mg capsule 300 mg PO BID 7 Days Qty: 14 0RF naproxen 500 mg tablet 500 mg PO BID PRN (Reason: pain) Qty: 30 0RF
--- OUTSIDE RECORDS SUMMARY | 2023-05-27 21:05 | XMS_ITS | Continuity of Care Document ---
Author Name Unknown Organization [facility] ter Address [address] [place] [address]- Care Team Providers Care Sql Engineer Name Role Phone Geoff Wilkins MD Primary Care Physician [phone] [place] [facility] [place]27[place]23 - 03/27/[address] [address]- Encounter Diagnosis Chest pain(Final) - 03/27/23 Discharge Disposition: A-D/C Home Attending Physician: Mario Bahena DO Admitting Physician: Mario Bahena DO Referring Physician: Not on Staff, Referring MD Allergies, Adverse Reactions, Alerts No Known Allergies Immunizations Given and Recorded Vaccine Date Status Refusal Reason pneumococcal 23-valent vaccine 12/01/19 Given Medications CeleXA 40 mg oral tablet 40 mg, 1, tablet, By Mouth, Daily, # 30 tablet, Refills 0, Tot. Refills 0, Maintenance, 01/13/20 9:44:00 EDT, Route to Pharmacy Electronically, [facility]/pharmacy #[id number], 171.45, cm, 01/12/20 15:07:00 EDT, Height, 74.2, kg, 12/13/19 20:44:00 EDT, Dry Weight Start Date: 01/13/20 Status: Ordered gabapentin 800 mg oral tablet 1 tablet = 800 mg, By Mouth, 3 times a day, # 90 tablet, 0 Refills, Maintenance, 01/13/20 9:45:00 EDT, Tablet, [facility]/pharmacy #[id number], 171.45, cm, 01/12/20 15:07:00 EDT, Height, 74.2, kg, 12/13/19 20:44:00 EDT, Dry Weight Start Date: 01/13/20 Status: Ordered nicotine 14 mg/24 hr transdermal film, extended release 1 patch, Topically, Daily, # 30 patch, 0 Refills, Maintenance, 01/13/20 9:48:00 EDT, Patch, [facility]acy [facility][id number], 1 patch Topically Daily, 171.45, cm, 01/12/20 15:07:00 EDT, Height, 74.2, kg, 12/13/19 20:44:00 EDT, Dry Weight Start Date: 01/13/20 Status: Ordered Tylenol 325 mg oral tablet 975 mg, 3, tablet, By Mouth, 2 times a day, Refills 0, Maintenance, 01/13/20 9:43:00 EDT Start Date: 01/13/20 Status: Ordered Problem List Condition Confirmation Course Effective Dates Status Health St atus Informant Back pain Confirmed Active Discitis of lumbar region Confirmed Active Opioid use disorder, severe, dependence Confirmed Active Results Radiology Reports * Exam Date Time Procedure Performing Provider Status 03/27/23 9:49 PM Chest 2 Views Frontal and Lat Mario Coto; Auth (Verified) Notes: (Chest 2 Views Frontal and Lat) Reason For Exam: Persistent Cough RESULT: Chest 2 Views Frontal and Lat Chest 2 Views Frontal and Lat Hx of Present Illness: reports mid sternal sharp chest pain assoc with coughiung, works 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 LUNGS AND PLEURA: Clear lungs. Normal pulmonary vascularity. No pleural effusion. No pneumothorax. HEART, MEDIASTINUM AND RAYMOND: Heart is normal in size. Normal mediastinal and hilar contour. BONES AND SOFT TISSUES: No acute abnormality. IMPRESSION: No acute abnormality. WSN: [id number] Ordering Physician: Mario Bahena Dictated By: Hakan Haider MD Dictated Date/Time: 03/27/23 9:57 pm Reviewed By: Hakan Haider MD Signed By: Hakan Haider MD Signed Date/Time: 03/27/23 9:57 pm Transcribed By: MISBAH Transcribed Date/Time: 03/27/23 9:57 pm Vital Signs Most recent to oldest [Reference Range]: 1 2 3 Height 173 cm (03/27/23 6:11 PM) Weight 82 kg (03/27/23 6:11 PM) Oxygen Saturation [94-100 %] 96 % (03/27/23 8:12 PM) 97 % (03/27/23 6:11 PM) 95 % (03/27/23 6:09 PM) Pulse Rate [55-90 bpm] 93 bpm *H* (03/27/23 8:12 PM) 107 bpm *H* (03/27/23 6:11 PM) 123 bpm *H* (03/27/23 6:09 PM) Body Mass Index [18.5-24.99 kg/m2] 27.4 kg/m2 *H* (03/27/23 6:11 PM) Blood Pressure [90-138/55-84 mm Hg] 117/78mm Hg (03/27/23 8:12 PM) 117/73mm Hg (03/27/23 6:11 PM) Respiratory Rate [16-30 br/min] 16 br/min (03/27/23 8:12 PM) 18 br/min (03/27/23 6:11 PM) 18 br/min (03/27/23 6:09 PM) Temperature [96.8-100.4 DegF] 97.9 DegF (03/27/23 8:12 PM) 97.7 DegF (03/27/23 6:11 PM) Mode of Delivery (Oxygen) Room air (03/27/23 8:12 PM) Room air (03/27/23 6:11 PM) Room air (03/27/23 6:09 PM) Blood pressure sites Arm, right (03/27/23 8:12 PM) Arm, right (03/27/23 6:11 PM) Temperature Route Oral (03/27/23 8:12 PM) Oral (03/27/23 6:11 PM) Dry Weight 82 kg (03/27/23 6:11 PM) Weight Obtained Via Patient/family state d (03/27/23 6:11 PM) Dry Weight Obtained Via Patient/family s tated (03/27/23 6:11 PM) Social History Social History Type Response Smoking Status 10 or more cigarette s (1/2 pack or more)/day in last 30 days entered on: 09/19/19 Sex Patient Care team information Care Team Personnel Name: Danyel Powers RN Position: [facility] RN Member Role: Primary Care Nurse Name: Bernie Khan RN Position: [facility] RN Supv Member Role: Primary Care Nurse Name: Geoff Wilkins MD Position: [facility] Outreach Member Role: PCP Address: Address: [address] [facility] [address] [place] [address]- [place] Name: Mary Jane Mackenzie RN Position: [facility] HBO Wound Member Role: Primary Care Nurse Name: Klarissa Pearson RN Position: [facility] RN Member Role: Primary Care Nurse Name: Cameron Diamond RN Position: [facility] RN Member Role: Primary Care Nurse Name: Heena Gipson RN Position: [facility] RN Member Role: Primary Care Nurse Name: *[facility], ED Attending Position: [facility] ED Attendings Patient Name: Joaquín Grimaldo RN Position: [facility] ED RN W/OE and Tasks Member Role: Patient Care Provider Name: Mario Bahena DO Position: [facility] Resident Member Role: Admitting Physician Address: Address: [address] [place] [address] [place] [address]- Care Team Related Persons Name: LAURA FERNANDO Address: home [address] [place] [address]
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
--- NOTE | 2023-05-27 21:17 | PC.NURSE ---
Eval by PA in triage, cleared for dc home with scripts.
== END 2023-05-27 21:18 | disposition home or self-care (01) ==
PROVIDERS: Emergency Provider Emergency Medicine; PCP Internal Medicine
DX: L40.0 Psoriasis vulgaris (principal)
CPT/HCPCS: 99282; 99283

== ENCOUNTER 2025-01-09 10:40 | Outpatient (AMB) | payer BC, SELFPAY ==
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
[2025-01-09 10:44] VITALS: BP 122/80; PULSE 83; TEMP 36.6; O2SAT 98; BMI 27.7
--- OUTSIDE RECORDS SUMMARY | 2025-01-09 12:39 | XMS_ITS | Clinical Summary ---
Author Organization [facility] Address [address] [place] [address] Care Team Providers Care Residential Door Unit Installer Name Role Phone Unavailable Primary Care Provider Unavailabl e Social History Tobacco Use Types Packs/Day Years Used Date Smoking Tobacco: Never Assessed Sex and Gender Information Value Date Recorded Sex Assigned at Not on file Legal Sex Male 1:47 AM EST Gender Identity Not on file Sexual Orientation Not on file Plan of Treatment Health Maintenance Due Date Last Done Comments DTaP,Tdap,and Td Vaccines (1 - Tdap) 1992 Hepatitis B Vaccines (1 of 3 - 19+ 3-dose series) 1992 Pneumococcal Vaccine: 50+ Ye ars (1 of 1 - PCV) 2023 Zoster Vaccines (1 of 2) 2023 Depression Screening 05/03/2024 COVID-19 Vaccine (1 - 2023-2 5 season) 2025 Influenza Vaccine (#1) 2025 HIB Vaccines Aged Out No longer eligi ble based on patient's age to complete this topic HPV Vaccines Aged Out No longer eligi ble based on patient's age to complete this topic Hepatitis A Vaccines Aged Out No long er eligible based on patient's age to complete this topic IPV Vaccines Aged Out No longer eligi ble based on patient's age to complete this topic MMR Vaccines Aged Out No longer eligi ble based on patient's age to complete this topic Meningococcal ACWY Vaccine Aged Out N o longer eligible based on patient's age to complete this topic Meningococcal B Vaccine Aged Out No l onger eligible based on patient's age to complete this topic RSV Immunization Patients Un don[place] 20 months Aged Out No longer eligible b ased on patient's age to complete this topic Varicella Vaccines Aged Out No longer eligible based on patient's age to complete this topic
== END 2025-01-09 11:11 | disposition home or self-care (01) ==
LOC: HO.HMCHD 10:41
PROVIDERS: PCP Internal Medicine; Visit Provider Physician Assistant Medical
DX: Z00.00 Encounter for general adult medical examination without abnormal findings (principal); H54.7 Unspecified visual loss; F19.11 Other psychoactive substance abuse, in remission; F33.9 Major depressive disorder, recurrent, unspecified; F41.9 Anxiety disorder, unspecified; L30.9 Dermatitis, unspecified; R76.8 Other specified abnormal immunological findings in serum

== ENCOUNTER 2025-01-09 11:25 | Outpatient (REF) | payer BC, SELFPAY ==
[2025-01-09 13:12] LABS: MANUAL DIFF FLAG NO
[2025-01-09 13:22] LABS: Hematocrit 48.8 % (42.0-52.0); Hemoglobin 17.3 g/dl (14.0-18.0); Imm Gran Abs Auto 0.01 X10*3/uL (0.00-0.03); Imm Gran Pct Auto 0.3 % (0.0-0.4); Lymphocytes Absolute Auto 0.7 X10*3/uL (1.2-4.9); Mean Corpuscular HGB Conc 35.5 g/dl (31.0-36.0); Mean Corpuscular Hemoglobin 31.6 pg (27.0-33.0); Mean Corpuscular Volume 89.1 fL (80.0-98.0); NRBC Abs Auto 0.000 X10*3/uL (0.0-0.012); NRBC Pct Auto 0.0 /100WBC (0.0-0.2); Platelet Count 251 X10*3/uL (160-400); Red Blood Count 5.48 X10*6/uL (4.60-5.80); White Blood Count 3.8 X10*3/uL (4.8-10.8)
[2025-01-09 13:43] LABS: Alanine Aminotransferase 50 U/L (0-40); Albumin Level 4.4 g/dL (3.5-5.0); Alkaline Phosphatase 52 U/L (39-117); Anion Gap 12 (12-20); Aspartate Amino Transferase 54 U/L (5-37); Blood Urea Nitrogen 15 mg/dL (9-16); Calcium 9.1 mg/dL (8.4-10.2); Carbon Dioxide 29 mmol/L (22-29); Chloride 103 mmol/L (96-108); Cholesterol 218 mg/dL (<200); Estimated Glomerular Filt Rate > 60; HDL Cholesterol 33 mg/dL (>40); Potassium 4.2 mmol/L (3.3-5.1); Sodium 140 mmol/L (135-145); Total Protein 7.0 g/dL (6.5-8.0); Triglycerides 150 mg/dL (<150)
[2025-01-10 17:00] LABS: HCV Log PCR <1.18 NOT DETECTED Log IU/mL (NOT DETECTED); HepC Viral Load <15 NOT DETECTED IU/mL (NOT DETECTED)
== END 2025-01-09 11:26 | disposition home or self-care (01) ==
LOC: HO.10HDL 11:25
PROVIDERS: Visit Provider Physician Assistant Medical
DX: Z00.00 Encounter for general adult medical examination without abnormal findings (principal); Z13.220 Encounter for screening for lipoid disorders; Z13.6 Encounter for screening for cardiovascular disorders; F33.9 Major depressive disorder, recurrent, unspecified; F41.9 Anxiety disorder, unspecified; F19.11 Other psychoactive substance abuse, in remission
CPT/HCPCS: 36415; 80053; 80061; 84443; 85025; 87522

== ENCOUNTER 2025-04-11 10:19 | Outpatient (AMB) | payer BC, SELFPAY ==
--- NOTE | 2025-04-11 09:45 | MHC.PC.OV ---
Vital Signs 04/11/25 10:23 Height 5 ft 8 in Weight 173 lb BMI 26.3 BP 130/76 Blood Pressure Location Lt brachial Position Sitting Pulse 65 Pulse Source Pulse Oximeter Temp 97.3 F Temp Source Temporal Artery Scan Pulse Oximetry (%) 98 Oxygen Delivery Method Room Air Intake Visit Reasons: routine Kitchen Lead Required: No Accompanied by: Self / Same As Patient Allergies No Known Allergies (No Known Allergies*) Allergy (Verified 04/11/25 10:22) Medication List - Last Reconciled 04/11/25 by GAURAV Benavides citalopram 40 mg PO DAILY hydroxyzine pamoate 50 mg PO TID PRN Tobacco use date assessed: 04/11/25 Dental Screening Dental Screen Date: 04/11/25 Did you have a dental visit in the last 12 months?: No Did you have a dental problem in the last 6 months where you did not have access to dental care?: No HPI HPI Comments History of Present Illness Details The patient is a 49 year old male with history of Substance abuse in remission, MDD/Anxiety and eczema presenting for follow-up for medication management and review of lab results. He is on citalopram and hydroxyzine for depression and anxiety and reports his anxiety is much better since restarting his medication. Recent lab work showed very slightly elevated liver functions and cholesterol that is up a little bit. Cholesterol of 218, LDL of 155 and HLD of 33. Medical History: - Anxiety, managed with citalopram and hydroxyzine. - Depression, managed with citalopram and hydroxyzine. Medications: - Citalopram for depression and anxiety. - Hydroxyzine for depression and anxiety. Patient was informed and verbally consented to the use of an ambient scribe for clinic note documentation during this visit. [facility] Medical History (Updated 04/11/25 @ 12:39 by GAURAV Benavides) Amputation of great toe, left, traumatic Anxiety Decreased visual acuity Depression Eczema Elevated LFTs Health care maintenance History of substance abuse Hyperlipidemia Lipid screening MDD (major depressive disorder), recurrent episode Opiate abuse, episodic Positive hepatitis C antibody test Family History (Updated 04/11/25 @ 10:28 by Carmen Griffin MA) Mother No problems noted. Father No problems noted. Social History Housing: Apartment Patient Tobacco Use Status: Current everyday Tobacco user (sometimes) e-Cigarette/Vaping Use: Currently Using (sometimes smoke cigarette) service: No Current occupational status: employed Cognitive needs: No Hearing needs: No Vision needs: Yes (reading glasses) Questionnaire PHQ-9 Over the last 2 weeks, how often have you been bothered by any of the following problems? 1. Little interest or pleasure in doing things: not at all 2. Feeling down, depressed, or hopeless: not at all 3. Trouble falling or staying asleep, or sleeping too much: not at all 4. Feeling tired or having little energy: not at all 5. Poor appetite or overeating: not at all 6. Feeling bad about yourself - or that you are a failure or have let yourself or your family down: not at all 7. Trouble concentrating on things, such as reading the newspaper or watching television: not at all 8. Moving or speaking so slowly that other people could have noticed. Or the opposite - being so fidgety or restless that you have been moving around a lot more than usual: not at all 9. Thoughts that you would be better off or of hurting yourself in some way: not at all Total score: 0 Depression Screening Interpretation: Negative Depression Screening Done: Yes Source: Developed by Drs. Dre Guo, Radha Toth, Dany Becker and colleagues, with an educational steve from [employer]. Thrive Questionnaire Date Thrive assessed: 04/11/25 I am a: Patient Within the past 12 months, did the food you bought not last and you didn't have the money to get more?: Never true Within the past 12 months, did you worry whether your food would run out before you got money to buy more?: Never true Do you have trouble paying for medicines?: No Do you have trouble getting transportation to medical appointments?: No Do you have trouble paying your heating and electricity bill?: No Do you have trouble taking care of your child, family member or friend?: No Do you have trouble with day-to-day activities such as bathing, preparing meals, shopping, managing finances, etc.?: No Are you currently unemployed and looking for a job?: No Are you interested in more education?: No THRIVE Score: 0 AUDIT C Alcohol Use Questionnaire (AUDIT-C) 1. How often do you have a drink containing alcohol?: Never 3. How often do you have six or more drinks on one occasion?: Never Total Score: 0 DRU-7 AMB Questionnaire DRU-7 Date DRU - 7 assessed: 04/11/25 Feeling nervous, anxious, or on edge: 0 = Not at all Not being able to stop or control worryin = Not at all Worrying too much about different things: 0 = Not at all Trouble relaxin = Not at all Being so restless that it is hard to sit still: 0 = Not at all Becoming easily annoyed or irritable: 0 = Not at all Feeling afraid as if something awful might happen: 0 = Not at all Total DRU-7 score (0-4 normal; 5-9 mild; 10-14 moderate; 15-21 severe): 0 Source: Developed by Drs. Dre Guo, Radha Toth, Dany Becker and colleagues, with an educational steve from [employer]. Review of Systems Narrative Review of Systems - General: Reports feeling tired. - Psychiatric: Reports anxiety is a lot better since restarting medication. Physical exam (Primary Care) Vital Signs: Last Vital Signs Temp 97.3 F 04/11/25 10:23 Pulse 65 04/11/25 10:23 BP 130/76 04/11/25 10:23 Pulse Ox 98 04/11/25 10:23 Oxygen Delivery Method Room Air 04/11/25 10:23 BMI result Body Mass Index 26.3 GENERAL Well developed, Well nourished, in no apparent distress HEENT Head-Normocephalic Neck- Supple, No lymphadenopathy, thyroid WNL RESPIRATORY Normal I:E, Clear to auscultation CARDIOVASCULAR Regular, rate and rhythm, No murmurs or rubs GASTROINTESTINAL Soft, nontender, normal bowel sounds, no masses NEUROLOGICAL Gait normal PSYCHIATRIC Oriented to person, place and time Mood and affect WNL Appearance WNL Speech WNL Thought processes WNL Tobacco/Smoking Status: Tobacco use Status Tobacco use date assessed 04/11/25 04/11/25 10:28 Patient Tobacco Use Status Current everyday Tobacco 04/11/25 09:48 e-Cigarette/Vaping Use Currently Using 04/11/25 09:48 PHQ-9: PHQ-9 Score PHQ-9: Total score 0 04/11/25 11:17 Depression Screening Interpretation: Negative Thrive Assessment: Date of Thrive Assessment Date Thrive assessed 04/11/25 04/11/25 10:28 Narrative Physical Exam Coding Level of Care Code Established Pt Est Pt Level 4 (53751) Established Pt Add On Problem Visit Only Patient Type Established Diagnoses Anxiety F41.9 Moderate episode of recurrent major depressive disorder F33.1 Major depression episode severity: moderate Elevated LFTs R79.89 Pure hypercholesterolemia E78.00 Hyperlipidemia type: pure hypercholesterolemia Time Spent (min) 30 Comment Time spent on result review, H&P, patient education and orders. Assessment & Plan Assessment & Plan (1) Anxiety: Code(s): F41.9 - Anxiety disorder, unspecified Category: Medical Plan: The patient is taking citalopram and hydroxyzine for depression and anxiety and reports improvement in anxiety symptoms since restarting the medication. A refill for his medication will be sent to the [facility] on [address]. (2) MDD (major depressive disorder), recurrent episode: Code(s): F33.9 - Major depressive disorder, recurrent, unspecified Category: Medical Qualifiers: Major depression episode severity: moderate Qualified Code(s): F33.1 - Major depressive disorder, recurrent, moderate Plan: The patient is taking citalopram and hydroxyzine for depression and anxiety and reports improvement in anxiety symptoms since restarting the medication. A refill for his medication will be sent to the [facility] on [address]. (3) Elevated LFTs: Code(s): R79.89 - Other specified abnormal findings of blood chemistry Category: Medical Plan: Recent lab work showed very slightly elevated liver functions. A hepatitis C viral load test was negative. To investigate further, an order for a liver ultrasound will be placed to rule out other causes, such as fatty liver, which is a common cause for such elevations. Patient to follow up in 3 months or sooner if needed. (4) Hyperlipidemia: Code(s): E78.5 - Hyperlipidemia, unspecified Category: Medical Qualifiers: Hyperlipidemia type: pure hypercholesterolemia Qualified Code(s): E78.00 - Pure hypercholesterolemia, unspecified Plan: The patient's cholesterol is slightly elevated, but not high enough to require medication at this time. A low-fat, high-fiber diet was recommended, emphasizing fish, chicken, fruits, vegetables, and whole grains, while preparing food by baking, broiling, or grilling instead of frying. A follow-up cholesterol check is planned in about six months to monitor levels. Plan Plan Patient was informed and verbally consented to the use of an ambient scribe for clinic note documentation during this visit. 1. Elevated Liver Function Tests Recent lab work showed very slightly elevated liver functions. A hepatitis C viral load test was negative. To investigate further, an order for a liver ultrasound will be placed to rule out other causes, such as fatty liver, which is a common cause for such elevations. 2. Hypercholesterolemia The patient's cholesterol is slightly elevated, but not high enough to require medication at this time. A low-fat, high-fiber diet was recommended, emphasizing fish, chicken, fruits, vegetables, and whole grains, while preparing food by baking, broiling, or grilling instead of frying. A follow-up cholesterol check is planned in about six months to monitor levels. 3. Anxiety And Depression The patient is taking citalopram and hydroxyzine for depression and anxiety and reports improvement in anxiety symptoms since restarting the medication. A refill for his medication will be sent to the [facility] on [address]. Discussion Notes I have reviewed the patient's recent lab results with him. Given the slightly elevated liver function tests, I explained that the most common cause is fatty deposits near the liver, but we will order an ultrasound to be certain. I also discussed his slightly elevated cholesterol and recommended dietary changes, including a low-fat, high-fiber diet, and we will recheck his levels in about six months. We discussed his anxiety and depression, and he reports his anxiety is much better on his current medications, citalopram and hydroxyzine, for which I will send in a refill. I advised the patient to schedule a follow-up appointment in three months, or sooner if any issues arise, and to bring in his [facility] paperwork for completion. Patient Instructions - An order is being placed for a liver ultrasound. The imaging facility will call you to schedule the appointment. - Follow a low-fat, high-fiber diet. Eat more fish, chicken, fruits, vegetables, and whole grains. Try to bake, broil, or grill your food instead of frying it. - Your cholesterol will be rechecked in about six months. - Your prescription for citalopram will be refilled at the [facility] on [address]. - Bring in the paperwork from the [facility] so it can be filled out for you. - Schedule a follow-up appointment in about three months. Please call sooner if anything comes up. Orders: Orders US abdomen limited Today R79.89 - Other specified abnormal findings of blood chemistry Medications: Refilled citalopram 40 mg PO DAILY 90 tabs 1RF depression/anxiety hydroxyzine pamoate 50 mg PO TID PRN 90 caps 1RF anxiety Patient Instructions: - An order is being placed for a liver ultrasound. The imaging facility will call you to schedule the appointment. - Follow a low-fat, high-fiber diet. Eat more fish, chicken, fruits, vegetables, and whole grains. Try to bake, broil, or grill your food instead of frying it. - Your cholesterol will be rechecked in about six months. - Your prescription for citalopram will be refilled at the [facility] on [address]. - Bring in the paperwork from the [facility] so it can be filled out for you. - Schedule a follow-up appointment in about three months. Please call sooner if anything comes up.
[2025-04-11 10:23] VITALS: BP 130/76; PULSE 65; TEMP 36.3; O2SAT 98; BMI 26.3
== END 2025-04-11 10:43 | disposition home or self-care (01) ==
LOC: HO.HMCHD 10:20
PROVIDERS: PCP Physician Assistant Medical; Visit Provider Physician Assistant Medical
DX: F41.9 Anxiety disorder, unspecified (principal); F33.1 Major depressive disorder, recurrent, moderate; R79.89 Other specified abnormal findings of blood chemistry; E78.00 Pure hypercholesterolemia, unspecified